=== PATIENT | male | born 1985 | race Caucasian/White ===

== ENCOUNTER 2018-10-04 15:36 | Emergency (ER) | payer SELFPAY ==
--- NOTE | 2018-10-04 15:40 | UC ---
Lower Extremity/Ankle HPI - HPI Summary HPI Summary: 33 yo male presents with LEFT calf pain and swelling. He tells me that about 3 weeks ago he was riding his bike and noticed some pain behind his left knee and in his left upper calf. Since that time the pain has continue despite rest and ice. Over the last few days has noticed some swelling and "veins popping out" that are tender. He denies specific injury, SOB, chest pain, personal or fam hx of blood clots, or recent travel. 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 - History of Current Complaint Stated Complaint: LEG PAIN, AND SWELLING Time Seen by Provider: 10/04/18 15:39 Hx Obtained From: Patient Onset/Duration: Gradual Onset Severity Initially: Mild Severity Currently: Mild Pain Intensity: 4 Pain Scale Used: 0-10 Numeric Aggravating Factor(s): Standing, Ambulation Alleviating Factor(s): Rest Able to Bear Weight: Yes - Allergies/Home Medications Allergies/Adverse Reactions: Allergies Allergy/AdvReac Type Severity Reaction Status Date / Time No Known Allergies Allergy Verified 10/04/18 15:46 Home Medications: Home Medications Ferrous Sulfate [Slow Release Iron] 1 tab PO DAILY 10/04/18 [History Confirmed 10/04/18] Ibuprofen 400 mg PO ONCE PRN 10/04/18 [History Confirmed 10/04/18] Multivitamin [Multivitamins] 1 tab PO DAILY 10/04/18 [History Confirmed 10/04/18 ] PMH/Surg Hx/FS Hx/Imm Hx - Additional Past Medical History Additional PMH: 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 - Surgical History Surgical History: None Surgery Procedure, Year, and Place: [place]: Bone tumor removal as child at 10 yoa - Family History Known Family History: Positive: None - Social History Lives: With Family Alcohol Use: Rare Substance Use Type: None Smoking Status (MU): Current Every Day Smoker Type: [employer]ig[employer]jud[employer] Review of Systems All Other Systems Reviewed And Are Negative: Yes Constitutional: Positive: Negative Skin: Positive: Negative Respiratory: Positive: Negative Cardiovascular: Positive: Negative Neurovascular: Positive: Negative Musculoskeletal: Positive: Other: - left calf pain Neurological: Positive: Negative Psychological: Positive: Negative Physical Exam - Summary Physical Exam Summary: GENERAL: NAD. WDWN. No pain distress. SKIN: No rashes, sores, lesions, or open wounds. CHEST: CTAB. No r/r/w. No accessory muscle use. Breathing comfortably and in no distress. CV: RRR. Without m/r/g. Pulses intact PT and DP. Cap refill <2seconds MSK: LEFT CALF: NTTP. No edema appreciated. No varicose veins appreciated. LEFT KNEE: FROM. Strength 5/5. No edema or obvious bony deformities. NEURO: Alert. Sensations intact and symmetric B/L LEs PSYCH: Age appropriate behavior. Triage Information Reviewed: Yes Vital Signs: Vital Signs: Temp Pulse Resp BP Pulse Ox 99.1 F 72 18 107/66 100 10/04/18 15:41 10/04/18 15:41 10/04/18 15:41 10/04/18 15:41 10/04/18 15:41 Vital Signs Reviewed: Yes Lower Extremity Course/Dx - Course Course Of Treatment: US: IMPRESSION: #. No evidence for LEFT lower extremity deep venous thrombosis. #. Small complex LEFT popliteal cyst with evidence for rupture and dissection of fluid into the calf within the subcutaneous tissue plane superficial to the medial head of the gastrocnemius. I suspect this is/was a white's cyst that has ruptured and is causing him discomfort and swelling. Advised to rest, apply ice, and elevate intermittently throughout the day. Given his history of the left hip lesion at age 9, we discussed obtaining XRs of his hip and left LE today to further assess the area and calf pain - but pt declined. I will refer him to Orthopedics for further evaluation of his calf pain and hx of hip bone tumor. - Differential Dx/Diagnosis Provider Diagnosis: Bakers cyst Discharge - Sign-Out/Discharge Documenting (check all that apply): Patient Departure All imaging exams completed and their final reports reviewed: Yes - Discharge Plan Condition: Stable Disposition: HOME Patient Education Materials: Bakers Cyst (ED) Referrals: No Primary Care Phys,NOPCP [Primary Care Provider] - Lashay Rangel MD [Medical Doctor] - 2 Weeks Additional Instructions: If you develop a fever, shortness of breath, chest pain, new or worsening symptoms - please call your PCP or go to the ED immediately. Your ultrasound today did not show a blood clot. Please rest, ice, and elevate your leg intermittently throughout the day to reduce pain and swelling. I recommend that you call Orthopedics at the number below to schedule an appointment for further evaluation of your calf pain and swelling and for follow up care of your previous hip lesion/surgery. - Billing Disposition and Condition Condition: STABLE Disposition: Home - Attestation Statements Provider Attestation: I was available for consult. This patient was seen by the DOUGLAS. The patient was not presented to, seen by, or examined by me. -Starr
[2018-10-04 15:46] VITALS: BP 107/66
== END 2018-10-04 16:57 | disposition home or self-care (01) ==
LOC: UCEAST 15:36
DX: M71.22 Synovial cyst of popliteal space [Baker], left knee (principal); F17.210 Nicotine dependence, cigarettes, uncomplicated
CPT/HCPCS: 99201; G0463